=== PATIENT | male | born 1970 | race Caucasian/White ===

== ENCOUNTER 2019-12-31 00:32 | Inpatient (IN) | payer MEDICARE, MEDICAID ==
[2019-12-31] VITALS (74 sets, daily range): BP systolic 103–145; BP diastolic 50–90
[~2019-12-31] VITALS: Ht 167.6 cm; Wt 131.2 kg
--- NOTE | ~2019-12-31 | CON ---
[address] [address] CONSULTATION Name: MOSES HOLLOWAY Room: [address] ADM IN M.R.#: [id number] Admission: 12/31/19 Attend Phys: Sylvia Fisher MD Discharge: Date of : 66 Report #: [id number] THIS REPORT FOR: //name// cc: Masoud Macario MD, Khanh MD ~ THIS REPORT FOR: //name// CC: Masoud Fisher DATE OF SERVICE: 12/31/2019 NEUROLOGY CONSULTATION CONSULTING PHYSICIAN: Dr. Fisher. REASON FOR CONSULTATION: Acute kidney injury. HISTORY OF PRESENT ILLNESS: A 49-year-old gentleman who was brought in with ttk-[id number] cardiac arrest. He is intubated and currently on two vasopressors. He is being followed by Cardiology, Pulmonology in the hospital and hospitalist. I was asked to see him because of an elevated creatinine and some poor urine output. His creatinine on admission was 1.9. Baseline creatinine is unknown. He has had some significant hyperglycemia as well and has been started on antibiotics. His urine drug screen was positive for marijuana. It was thought that he was down for about 20 minutes and there is some concern for polysubstance abuse as well. REVIEW OF SYSTEMS: Constitutional, psych, heme, eyes, ENT, respiratory, cardiac, GI, , endocrine, all negative except as can be documented above and as best as can be ascertained. PAST MEDICAL HISTORY: Diabetes, hypertension, dyslipidemia, history of marijuana use. SOCIAL HISTORY: Positive for marijuana. FAMILY HISTORY: Not pertinent in this 49-year-old gentleman. CURRENT MEDICATIONS: Reviewed. PHYSICAL EXAMINATION: VITAL SIGNS: Blood pressure 124/78, pulse 70, respirations 20, temperature 32.1. He is on hypothermia protocol. GENERAL: On respiratory support. HEAD: Normocephalic[place] [address] CONSULTATION Name: MOSES HOLLOWAY Room: [address] IN [facility]#: [id number] Admission: 12/31/19 Attend Phys: Sylvia Fisher MD Discharge: Date of : 66 Report #: [id number] CARDIOVASCULAR: Regular rate. LUNGS: Diminished. ABDOMEN: Distended. MUSCULOSKELETAL: No significant pitting edema. NEUROLOGIC: Unresponsive and currently sedated. LABORATORY DATA: White cell count 16.8, hemoglobin 16.8, platelets 243. Sodium 135, potassium 4.2, chloride 101, bicarbonate 21, BUN 24, creatinine 2, glucose 541, calcium 7.1, phosphorus 7.1, magnesium 1.8. ASSESSMENT: 1. Acute kidney injury with a creatinine of 1.9. Baseline creatinine is unknown. UA is noted and was abnormal showing some hematuria and proteinuria and this is in the setting of shock and qjb-mr-kpbwukru cardiac arrest. 2. Severe acidosis with a pH of 7.02, pCO2 of 68 and a bicarbonate of 17. This is respiratory acidosis with an elevated anion gap metabolic acidosis and normal anion gap acidosis with an anion gap of 17 and a delta delta of 0.7. This is in the setting of elevated blood sugars and acute kidney injury. His alcohol level was less than 10 and his UA did not show any ketones. 3. Urine drug screen positive for marijuana. 4. Hematuria. 5. Proteinuria. 6. Shock, requiring vasopressor support. 7. Mff-qc-gooaatvt cardiac arrest on code ICE protocol. 8. Diabetes with significant hyperglycemia. 9. Hyperphosphatemia with phosphorus 7.7 on 12/31/2019. 10. Hypocalcemia with a calcium 7.1 on 12/31/2019. PLAN: 1. Creatinine is 2. Urine output diminished. Castillo catheter, which was manipulated by ICU nurse and urine output seems to have improved quite a bit. 2. We will check renal ultrasound. 3. Check urine protein to creatinine ratio. 4. The patient is on bicarbonate drip. I am informed by the ICU nurse that Pulmonology will be managing the bicarbonate drip. We will defer to them and repeat gas has been ordered by Pulmonology. 5. Rewarming is planned for 3:00 a.m. 6. Currently on two vasopressors as well as antibiotics. 7. We will send serologic workup and check for DANTE, ANCA, anti-GBM, hepatitis B, hepatitis C, rheumatoid factor. We will also check a CK. 8. We will give IV calcium. 9. Check CK. 10. [place] [address] CONSULTATION Name: MOSES HOLLOWAY Room: [address] IN ..#: [id number] Admission: 12/31/19 Attend Phys: Sylvia Fisher MD Discharge: Date of : 66 Report #: [id number] Thank you for requesting my opinion in the care and management of this patient. By: 1301 [id number] Michael Martinez MD /sourav
[2019-12-31 01:29] LABS: ABSOLUTE BASOPHILS 0.1 thou/uL (0.0-0.2); ABSOLUTE EOSINOPHILS 0.1 thou/uL (0.0-0.7); ABSOLUTE LYMPHOCYTES 7.1 thou/uL (0.8-5.3); ABSOLUTE MONOCYTES 0.7 thou/uL (0.0-1.2); ABSOLUTE NEUTROPHILS 10.1 thou/uL (1.6-8.1); BASOPHILS 0.3 %; EOSINOPHILS 0.7 %; HEMATOCRIT 47.8 % (42.0-52.0); HEMOGLOBIN 15.5 gm/dL (14.0-18.0); LYMPHOCYTES 39.4 %; MCH 31.5 pg (26.0-34.0); MCHC 32.5 g/dL (28.0-37.0); MCV 96.9 fL (80.0-100.0); MONOCYTES 3.9 %; MPV 8.1 fl. (7.2-11.1); NUCLEATED RBCS 0 /100WBC; PLATELET COUNT* 214 thou/uL (150-400); POLYS 55.7 %; RBC 4.93 mil/uL (4.50-6.00); RDW-CV 14.9 % (10.5-14.5); WBC 18.1 thou/uL (4.0-11.0)
[2019-12-31 01:31] LABS: CALCIUM 9.2 mg/dL (8.5-10.1); CREATININE 1.9 mg/dL (0.6-1.3)
[2019-12-31 01:42] LABS: MAGNESIUM 2.3 mg/dL (1.8-2.4); TOTAL BILIRUBIN 0.3 mg/dL (<0.1-1.0); TOTAL PROTEIN 7.5 g/dL (6.4-8.2)
[2019-12-31] MEDS ORDERED: AMBIEN 10 MG TA10 MG (01:44)
[2019-12-31 01:52] LABS: INR 1.1; PROTIME 11.1 Seconds (9.20-11.50)
[2019-12-31 02:07] LABS: BE -17.3 mmol/L (-2 to +3)
[2019-12-31 02:09] LABS: PCO2 112.6 mmHg (35.0-45.0); PO2 162.4 mmHg (75.0-100.0); pH 6.842 (7.340-7.450)
[2019-12-31 03:12] LABS: BE -15.3 mmol/L (-2 to +3)
[2019-12-31 03:19] LABS: PCO2 92.1 mmHg (35.0-45.0); PO2 152.6 mmHg (75.0-100.0); pH 6.939 (7.340-7.450)
[2019-12-31 04:51] LABS: URINE BILIRUBIN NEGATIVE (Negative); URINE BLOOD 3+ (Negative); URINE CLARITY SL CLOUDY; URINE COLOR YELLOW; URINE GLUCOSE-RANDOM 3+ (Negative); URINE KETONES NEGATIVE (Negative); URINE LEUKOCYTES-REFLEX NEGATIVE (Negative); URINE NITRITE-REFLEX NEGATIVE (Negative); URINE PROTEIN 3+ (Negative); URINE SPECIFIC GRAVITY 1.025 (1.005-1.030); URINE UROBILINOGEN 0.2 E.U./dl (0.2-1.0)
[2019-12-31 04:58] LABS: AMP/METHAMP Negative (Negative); BARBITURATES Negative (Negative); BENZODIAZEPINES POSITIVE (Negative); COCAINE Negative (Negative); METHADONE Negative (Negative); OPIATES POSITIVE (Negative); PCP Negative (Negative); THC POSITIVE (Negative)
[2019-12-31 06:12] LABS: SQUAMOUS 4-10 Moderate /LPF (0-3)
[2019-12-31 06:13] LABS: COARSE GRANULAR CASTS 0-3 Few /LPF (None Seen); URINE RBC >20 Many /HPF (0-2); URINE WBC-REFLEX 6-15 Few /HPF (0-5)
[2019-12-31 06:14] LABS: AMORPHOUS URATES Moderate /LPF (None Seen)
[2019-12-31 06:29] LABS: APTT 36.3 Seconds (25.0-31.3)
[2019-12-31 06:54] LABS: CALCIUM 7.2 mg/dL (8.5-10.1); CK-MB MASS 11.4 ng/mL (<0.5-3.6); PHOSPHORUS* 8.9 mg/dL (2.5-4.9)
[2019-12-31 09:21] LABS: HEMATOCRIT 50.7 % (42.0-52.0); HEMOGLOBIN 16.8 gm/dL (14.0-18.0); MCH 30.9 pg (26.0-34.0); MCHC 33.2 g/dL (28.0-37.0); MCV 93.1 fL (80.0-100.0); MPV 7.2 fl. (7.2-11.1); NUCLEATED RBCS 1 /100WBC; PLATELET COUNT* 243 thou/uL (150-400); RBC 5.45 mil/uL (4.50-6.00); WBC 16.8 thou/uL (4.0-11.0)
[2019-12-31 09:33] LABS: CK-MB MASS 19.1 ng/mL (<0.5-3.6)
[2019-12-31 09:35] LABS: TROPONIN-I LEVEL 0.84 ng/mL (<0.06)
[2019-12-31 09:43] LABS: FIBRINOGEN 149 mg/dL (200-340); INR 1.3; PROTIME 13.5 Seconds (9.20-11.50)
[2019-12-31 09:53] LABS: CALCIUM 7.1 mg/dL (8.5-10.1); MAGNESIUM 1.8 mg/dL (1.8-2.4); PHOSPHORUS* 7.7 mg/dL (2.5-4.9); POTASSIUM 4.2 mmol/L (3.5-5.1)
--- NOTE | 2019-12-31 10:12 | NUR ---
RECEIVED REPORT AND ASSUMED CARE AT 0342. PT TRANSPORTED FROM ED TO ROOM ICU 05. HYPOTHERMIA INITIATED AT 0347. STARTING TEMP AT 0347 WAS 92.5 F PER LOCO TEMP PROBE. GOAL TEMP OF 91.0 F REACHED AT 0630. LAB RESULTS RECEIVED AND COMMUNICATED WITH PHYSICIAN. CT OF HEAD NOT COMPLETED PRIOR TO PT ARRIVING TO ICU, PER PHYSICAN THIS AM, WILL WAIT FOR NEURO CONSULT PRIOR TO COMPLETING R/T CODE ICE STATUS. BED LOCKED IN LOWEST POSITION, BED ALARM ON. PATIENT 1:1 WHILE IN COOLING STATE. REWARMING TO BEGIN AT 0347 ON 01/01/20.
[2019-12-31 10:45] LABS: BE -15.2 mmol/L (-2 to +3); PO2 94.9 mmHg (75.0-100.0)
[2019-12-31 10:47] LABS: pH 7.018 (7.340-7.450)
[2019-12-31 11:04] LABS: ABSOLUTE LYMPHOCYTES 1.3 thou/uL (0.8-5.3); ABSOLUTE MONOCYTES 0.2 thou/uL (0.0-1.2); ABSOLUTE NEUTROPHILS 15.3 thou/uL (1.6-8.1); METAMYELOCYTES 3 %; PLATELET ESTIMATE ADEQUATE
--- NOTE | 2019-12-31 12:55 | EKG ---
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 : 1970 Requested By: Gloria Griffin Order Number: [id number] MD: Domingo Mejia Measurements Intervals [place] Rate: 103 P: 74 LA: 166 QRS: 77 QRSD: 130 T: -55 QT: 368 QTc: 482 Interpretive Statements Sinus tachycardia Nonspecific intraventricular conduction delay Repol abnrm suggests ischemia, inferior leads No previous ECG available for comparison Electronically Signed On 12-31-2019 12:55:05 CDT by Domingo Mejia [email or web address] <ELECTRONICALLY SIGNED> By: Domingo Mejia MD, FACC 12/31/19 1255 0046 0046 Domingo Mejia MD, [facility] /EPI
[2019-12-31 15:09] LABS: BE -17.8 mmol/L (-2 to +3); PO2 103.6 mmHg (75.0-100.0)
[2019-12-31 15:12] LABS: CALCIUM 6.3 mg/dL (8.5-10.1); CREATININE 2.5 mg/dL (0.6-1.3); POTASSIUM 3.1 mmol/L (3.5-5.1)
[2019-12-31 15:12] LABS: PCO2 65.2 mmHg (35.0-45.0); pH 6.978 (7.340-7.450)
--- NOTE | 2019-12-31 17:39 | NUR ---
PT REMAINS INTUBATED PER ORDERED SETTINGS.CODE ICE PROTOCOL FOLLOWED.REWARMING TO BEGIN @ 0347 01/01/20.MTN NOTFIED-PLEASE UPDATE WITH CHANGES.ART LINE PLACED THIS AM IN LEFT RADIAL BY ANESTHESIA.WOUND PICTURE TAKEN OF ABRASION ON RIGHT ABDOMEN.IO REMOVED FROM LEFT KNEE.PT STARTED ON PARALYTIC PER ORDERS-PER NO TRAIN OF FOUR NEEDS TO BE DONE BECAUSE WE ARE NOT TITRATING THE MEDICATION.NEW CONSULTS CALLED-PLAN FOR EEG,ECHO,CT,US RENAL/LOWER EXTREMITIES TOMORROW AFTER REWARMING.COVID TEST COLLECTED-ISOLATION MAINTAINED UNTIL RESULTS.FAMILY UPDATED-SISTER ARRIVED AT ICU DOORS BUT WAS NOT ALLOWED IN DUE TO PENDING COVID RESULTS.PT REMAINS 1:1-WILL CONTINUE TO MONITOR FOR DURATION OF SHIFT.
--- NOTE | 2019-12-31 19:00 | NUR ---
RECEIVED REPORT FROM DAY RN AND ASSUMED CARE. PT INCONINENT OF FOUL LOOSE STOOL. PARTIAL BATH AND LINEN CHANGE DONE
[2019-12-31 19:08] LABS: ABSOLUTE LYMPHOCYTES 0.7 thou/uL (0.8-5.3); ABSOLUTE MONOCYTES 0.3 thou/uL (0.0-1.2); ABSOLUTE NEUTROPHILS 10.5 thou/uL (1.6-8.1); BASOPHILS 0.1 %; EOSINOPHILS 0.1 %; HEMATOCRIT 49.1 % (42.0-52.0); HEMOGLOBIN 16.5 gm/dL (14.0-18.0); LYMPHOCYTES 5.7 %; MCH 30.8 pg (26.0-34.0); MCHC 33.6 g/dL (28.0-37.0); MCV 91.9 fL (80.0-100.0); MONOCYTES 2.6 %; MPV 7.3 fl. (7.2-11.1); NUCLEATED RBCS 1 /100WBC; PLATELET COUNT* 213 thou/uL (150-400); POLYS 91.5 %; RBC 5.35 mil/uL (4.50-6.00); RDW-CV 14.4 % (10.5-14.5); WBC 11.5 thou/uL (4.0-11.0)
[2019-12-31 19:31] LABS: CALCIUM 6.3 mg/dL (8.5-10.1); CK-MB MASS 29.2 ng/mL (<0.5-3.6); CREATININE 2.6 mg/dL (0.6-1.3); MAGNESIUM 1.7 mg/dL (1.8-2.4); PHOSPHORUS* 3.7 mg/dL (2.5-4.9)
[2019-12-31 19:32] LABS: TROPONIN-I LEVEL 1.24 ng/mL (<0.06)
[2019-12-31 19:36] LABS: APTT 26.6 Seconds (25.0-31.3); FIBRINOGEN 210 mg/dL (200-340); INR 1.2; PROTIME 12.5 Seconds (9.20-11.50)
[2019-12-31 20:15] LABS: BE -15.6 mmol/L (-2 to +3); PO2 105.2 mmHg (75.0-100.0)
[2019-12-31 20:22] LABS: PCO2 51.8 mmHg (35.0-45.0); pH 7.073 (7.340-7.450)
--- NOTE | 2019-12-31 22:15 | NUR ---
SPOKE TO DR METZ REGARDING MOST RECENT ABNORMAL LABS. ORDER FOR POTASSIUM ACETATE 50MEQ/250 CC NS TRO 4 HRS. PHARMACY CALCULATED DOSE TO 6HR AND STARTED FOLLOWING 3RD KCL [address] METZ WANTED THE K/ACETE STARTED BEFORE THE ORDERED 80 MEQ PROTOCOL DOSE INFUSED. PT ALSO GIVEN MAGNESIUM 2GM IVPB AT THIS TIME. LEVOPHED CONT'S AT 30 MCG/MIN, BICARB AT 125CC/HR, FENTANYL 50 MCG AND VERSED AT 2 MG/HR, NIMBEX AT 37.5/HR. HIS PRESSURES HAVE BEEN LABILE INTERMITTENTLU WITHOUT OUTSIDE STIMULUS. SBP 70-140/30-60. MAP HAS CONT'D 70'S. HE DOES NOT ERSPOND TO ANY TACTILE STIMULUS OR PROCEDURE. PUPILS REMAIN FULLY DILATED WITH SLOW RESPONSE? I HAVE BEEN MONITORING URINE OUTPUT HOURLY SINCE SHIFT CHANGE AND PT HAS GONE FROM 80 TO CURRENT 20+/HR.WILL WATCH A FEW MORE HOURS AND CONTACT MD IF IT STAYS BELOW 30CC/HR FOR 4 HRS.
[2020-01-01] VITALS (75 sets, daily range): BP systolic 76–140; BP diastolic 39–75
[2020-01-01 03:46] LABS: ABSOLUTE LYMPHOCYTES 0.4 thou/uL (0.8-5.3); ABSOLUTE MONOCYTES 0.3 thou/uL (0.0-1.2); ABSOLUTE NEUTROPHILS 9.3 thou/uL (1.6-8.1); BASOPHILS 0.1 %; HEMATOCRIT 46.9 % (42.0-52.0); HEMOGLOBIN 16.2 gm/dL (14.0-18.0); LYMPHOCYTES 4.5 %; MCH 30.9 pg (26.0-34.0); MCHC 34.4 g/dL (28.0-37.0); MCV 89.9 fL (80.0-100.0); MONOCYTES 3.2 %; MPV 7.5 fl. (7.2-11.1); NUCLEATED RBCS 0 /100WBC; PLATELET COUNT* 167 thou/uL (150-400); POLYS 92.2 %; RBC 5.22 mil/uL (4.50-6.00); RDW-CV 14.6 % (10.5-14.5); WBC 10.1 thou/uL (4.0-11.0)
[2020-01-01 04:04] LABS: ALBUMIN 2.9 g/dL (3.4-5.0); CREATININE 2.9 mg/dL (0.6-1.3); MAGNESIUM 1.7 mg/dL (1.8-2.4); TOTAL BILIRUBIN 0.5 mg/dL (<0.1-1.0); TOTAL PROTEIN 5.5 g/dL (6.4-8.2)
[2020-01-01 04:06] LABS: CALCIUM 5.8 mg/dL (8.5-10.1); POTASSIUM 2.8 mmol/L (3.5-5.1)
[2020-01-01 04:10] LABS: CREATININE 2.9 mg/dL (0.6-1.3); MAGNESIUM 1.6 mg/dL (1.8-2.4)
[2020-01-01 04:24] LABS: POTASSIUM 2.9 mmol/L (3.5-5.1)
[2020-01-01 04:28] LABS: FIBRINOGEN 276 mg/dL (200-340)
[2020-01-01 04:29] LABS: CALCIUM 5.9 mg/dL (8.5-10.1)
--- NOTE | 2020-01-01 04:30 | NUR ---
SPOKE TO DR METZ REGARDING AM LABS, ORDERS RECEIVED TO CON'T K PROTOCOL AND GIVE ADDT'L 2GM MAGNESIUM NOW. INFORMED HIM OF PT INSULIN RESISTENCE AND HIGH DOSING TONIGHT. ORDER TO CALL RENAL FOR ASSISTANCE WITH LABS. CALLED PLACED RIGHT AFTR SPEAKING TO JUICE TO DR NGO OFFICE
[2020-01-01 06:10] LABS: ALBUMIN 2.9 g/dL (3.4-5.0); CREATININE 2.9 mg/dL (0.6-1.3); PHOSPHORUS* 2.8 mg/dL (2.5-4.9)
[2020-01-01 06:11] LABS: POTASSIUM 2.9 mmol/L (3.5-5.1)
--- NOTE | 2020-01-01 07:34 | NUR ---
REPORT GIVEN TO BRAXTON PATTERSON RN. PT CURRENTLY IN CRITICAL, STABLE CONDITION
[2020-01-01 08:18] LABS: BE -8.6 mmol/L (-2 to +3); PCO2 46.1 mmHg (35.0-45.0); PO2 68.1 mmHg (75.0-100.0)
[2020-01-01 10:54] LABS: APTT 25.4 Seconds (25.0-31.3); INR 1.2; PROTIME 12.7 Seconds (9.20-11.50)
[2020-01-01 14:56] LABS: PCO2 46.1 mmHg (35.0-45.0); PO2 70.5 mmHg (75.0-100.0); pH 7.321 (7.340-7.450)
[2020-01-01 15:21] LABS: CREATININE 3.4 mg/dL (0.6-1.3)
[2020-01-01 15:24] LABS: CALCIUM 5.5 mg/dL (8.5-10.1)
--- NOTE | 2020-01-01 16:36 | CON ---
[address] [address] CONSULTATION Name: MOSES HOLLOWAY Room: [address] ADM IN M.R.#: [id number] Admission: 12/31/19 Attend Phys: Sylvia Fisher MD Discharge: Date of : 66 Report #: [id number] THIS REPORT FOR: //name// cc: Masoud Macario MD, Khanh MD ~ THIS REPORT FOR: //name// CC: aMsoud Fisher DATE OF SERVICE: 12/31/2019 CARDIOLOGY CONSULTATION INDICATION: Out of hospital arrest. HISTORY OF PRESENT ILLNESS: The patient is a 49-year-old gentleman who was found down at 2330 yesterday. Upon EMS arrival, he was found to be in some sort of arrhythmia requiring 4 shocks at which time spontaneous rhythm and circulation was restored. There is a history of polysubstance abuse. Etiology of cardiac arrest is unknown. He has been admitted and placed on Code Ice protocol. There was concern of aspiration at the time of intubation. PAST MEDICAL HISTORY: Not available. HOME MEDICATIONS: List not available. SOCIAL HISTORY: Not available. FAMILY HISTORY: Unknown. PHYSICAL EXAMINATION: GENERAL: He is presently hemodynamically stable on a combination of epinephrine and Levophed. He is in sinus rhythm. This is a morbidly obese gentleman who is intubated and unresponsive. HEENT: Head is normocephalic, atraumatic. NECK: Thick without obvious jugular venous distention. CHEST: Has diffuse wheezes throughout breath sounds, otherwise adequate. CARDIOVASCULAR: Reveals a regular rhythm with normal S1 and S2. I do not appreciate gallop or murmur. ABDOMEN: Reveals a protuberant abdomen that appears soft. EXTREMITIES: Shows no edema. SKIN: Dry. LABORATORY DATA: A 12-lead EKG shows sinus rhythm with [place] [address] CONSULTATION Name: MOSES HOLLOWAY Room: [address]#: [id number] Admission: 12/31/19 Attend Phys: Sylvia Fisher MD Discharge: Date of : 66 Report #: [id number] depression. No pathologic Q-waves noted. Chest x-ray shows minimal bilateral opacities. Initial troponin was less than 0.06, followed by 0.55 and now 0.84. NT-proBNP is normal at 53. IMPRESSION AND RECOMMENDATIONS: 1. Out of hospital arrest, status post resuscitation. Continue supportive care at this time. At this time, his blood pressure has improved to the point where vasopressors can be titrated. He is on Code ICE protocol, which will be completed. An echocardiogram has been ordered and is pending. Etiology of his arrest is not well known. Certainly, polysubstance use could be contributing. 2. Respiratory arrest. Presently intubated. Pulmonology following. The patient's respiratory status appears stable at this time. 3. Elevated troponin, likely due to strain from cardiac arrest. The numbers are still very small. I would recommend an echocardiogram to evaluate underlying cardiac structure and function. Could consider outpatient stress testing in the event of recovery. <ELECTRONICALLY SIGNED> By: Domingo Mejia MD, FACC 01/01/20 1636 1116 1130Micpeter Mejia MD, FACC /nt
--- NOTE | 2020-01-01 17:08 | NUR ---
ICU rounds: Pt was a code ice yesterday, rewarming now, up to 97 degrees. Pt is intubated and sedated. On pressors. Levo at 25. On insulin gtt. No weaning trials planned as of yet. Per nurse, Pt was having dinner with his 11 year old son, passed out, son called his mom (Pt's ex ) and she called 911. Per nurse, sister informed that Pt has a hx of opiate abuse. CM left message for Pt's sister, awaiting call back. Following.
--- NOTE | 2020-01-01 19:36 | NUR ---
TARGET TEMP 98.6 REACHED AT 1630, MAINTAINING TEMP FROM 98.1 TO 98.4. GCS 3. MTN AND FAMILY UPDATED. LEVOPHED TITRATED PER PROTOCOL, CURRENTLY AT 25 MCG/MIN. NIMBEX AND VERSED TO BE CONTD OVERNIGHT PER DR METZ. IV DRIP CHANGED TO NS AT 100 MLS/HR. ELECTROLYTES REPLACED PER ORDERS. OG AT LIS. UOP 130 MLS. SMALL SMEAR OF BM THIS SHIFT. Q2 TURNS AND ORAL CARE GIVEN.
[2020-01-01 20:06] LABS: MAGNESIUM 2.1 mg/dL (1.8-2.4)
[2020-01-01 20:07] LABS: CALCIUM 5.9 mg/dL (8.5-10.1)
[2020-01-01 20:28] LABS: BE -4.4 mmol/L (-2 to +3); PCO2 39.9 mmHg (35.0-45.0); PO2 70.7 mmHg (75.0-100.0); pH 7.339 (7.340-7.450)
[2020-01-02] VITALS (68 sets, daily range): BP systolic 92–123; BP diastolic 41–65
--- NOTE | 2020-01-02 04:05 | NUR ---
ASSUMED CARE AT 1900H, ON VENT PRESSURE SUPPORT OF 35, FREQUENCY 26 AND FIO2 70% AND TOLERATED. PT WAS UNRESPONSIVE AND PUPILS AT 5MM FIXED. ON GOING NIMBEX, VERSED, AND LEVO DRIP. INFORM NEPRO REGARDING CRITICAL RESULT WITH ORDER MADE AND CARRIED OUT. PULMONULOGIST ORDERED NEW VENT SEETING. AC MODE, TV 580, FREQUENCY 22, PEEP 5 AND FIO2 70%. NO DISTRESS NOTED. MAINTAINING DESIRED TEMP, ARTICSUN STOP AND NO REWARMING OR RECOOLING DONE. UPDATE GIVEN TO SISTER AND MTN. LEVO NOW AT 20MICS/MIN. CONTINUE MONITORING ANG TOWARD GOALS.
[2020-01-02 05:20] LABS: ABSOLUTE LYMPHOCYTES 0.6 thou/uL (0.8-5.3); ABSOLUTE MONOCYTES 0.6 thou/uL (0.0-1.2); ABSOLUTE NEUTROPHILS 15.7 thou/uL (1.6-8.1); BASOPHILS 0.1 %; HEMATOCRIT 35.5 % (42.0-52.0); LYMPHOCYTES 3.6 %; MCHC 34.8 g/dL (28.0-37.0); MCV 88.9 fL (80.0-100.0); MONOCYTES 3.4 %; MPV 9.2 fl. (7.2-11.1); NUCLEATED RBCS 0 /100WBC; POLYS 92.9 %; RBC 3.99 mil/uL (4.50-6.00); RDW-CV 14.7 % (10.5-14.5); WBC 16.9 thou/uL (4.0-11.0)
[2020-01-02 05:25] LABS: HEMOGLOBIN 12.3 gm/dL (14.0-18.0); PLATELET COUNT* 75 thou/uL (150-400)
[2020-01-02 05:40] LABS: ALBUMIN 2.6 g/dL (3.4-5.0); CREATININE 4.7 mg/dL (0.6-1.3); MAGNESIUM 1.9 mg/dL (1.8-2.4); TOTAL BILIRUBIN 0.4 mg/dL (<0.1-1.0); TOTAL PROTEIN 5.1 g/dL (6.4-8.2)
[2020-01-02 05:44] LABS: POTASSIUM 5.2 mmol/L (3.5-5.1)
[2020-01-02 05:46] LABS: CALCIUM 5.9 mg/dL (8.5-10.1)
[2020-01-02 06:27] LABS: HEMATOCRIT 35.1 % (42.0-52.0); HEMOGLOBIN 12.1 gm/dL (14.0-18.0); MCH 30.6 pg (26.0-34.0); MCHC 34.4 g/dL (28.0-37.0); MCV 89.1 fL (80.0-100.0); RBC 3.94 mil/uL (4.50-6.00); RDW-CV 14.6 % (10.5-14.5); WBC 16.5 thou/uL (4.0-11.0)
--- NOTE | 2020-01-02 07:43 | NUR ---
0730 ASSUMED CARE OF PATIENT. PLEASE SEE DOCUMENTED ASSESSMENT. WARMING PADS REMOVED. PT REMAINS ON PARALYTIC
[2020-01-02 08:17] LABS: BE -8.6 mmol/L (-2 to +3); PCO2 49.6 mmHg (35.0-45.0); PO2 80.4 mmHg (75.0-100.0)
[2020-01-02 08:20] LABS: pH 7.208 (7.340-7.450)
--- NOTE | 2020-01-02 09:00 | NUR ---
FLUID BOLUS INITIATED ORDERED BY DR ARAUJO. ATTEMPTING TO COORDINATE CT SCHEDULE WITH RT/CT/COMMITTEE MEMBER
--- NOTE | 2020-01-02 10:12 | NUR ---
EEG IN PROGRESS. SECOND FLUID BOLUS UP. =WILL RESTAART FENTANYL DRIP
--- NOTE | 2020-01-02 11:06 | NUR ---
DR ROUSSEAU HERE AND ORDERS NOTED. AWARE OF LABS AND OUTPUT
[2020-01-02 11:07] LABS: ANA INTERPRETATION Negative (Negative)
[2020-01-02 12:09] LABS: CALCIUM 6.1 mg/dL (8.5-10.1); CREATININE 5.2 mg/dL (0.6-1.3); POTASSIUM 4.9 mmol/L (3.5-5.1)
[2020-01-02 12:14] LABS: PCO2 40.8 mmHg (35.0-45.0)
[2020-01-02 12:18] LABS: pH 7.253 (7.340-7.450)
--- NOTE | 2020-01-02 12:35 | CON ---
[address] [address] CONSULTATION Name: MOSES HOLLOWAY Room: [address] IN M.R.#: [id number] Admission: 12/31/19 Attend Phys: Sylvia Fisher MD Discharge: Date of : 66 Report #: [id number] THIS REPORT FOR: //name// cc: Masoud Macario MD, Khanh MD ~ THIS REPORT FOR: //name// CC: Masoud Fisher DATE OF SERVICE: 12/31/2019 CONSULT REQUESTED BY: Wilian Dobbins MD INDICATION FOR CONSULTATION: Acute hypoxemic and hypercarbic respiratory failure post-cardiac arrest. HISTORY OF PRESENT ILLNESS: A 49-year-old gentleman. He is post-cardiac arrest and at this time is not responsive and therefore detailed information is not available. The patient is reported to have an outside cardiac arrest and had been shocked 4 times in field. The exact duration of time the patient was unresponsive is not known. The patient is reported to have been found unresponsive at home at 2330 hours yesterday. The patient had been vomiting. He is reported to have had a history of illegal drug use. I do not have details available. He had a bottle of pills with him. He, after being shocked 4 times in the field, did have return of spontaneous circulation. The patient is reported to have had used an arthritis cream recently, which contains ketamine. Upon arrival to the ER, the patient had a Carlos Enrique's tube. He had been vomiting and it was obvious that the patient has aspirated vomitus. He was switched over to an endotracheal tube and had a central line placed in the Emergency Room. The patient has been significantly hypotensive, although he has been bolused with 4 liters of fluid and has IV fluids running at 150 an hour. The patient in addition to being on maximal doses of norepinephrine also is on low dose epinephrine to maintain blood pressure. The patient has been on assist control mode of ventilation with a rate of 28 and a tidal volume of 450 overnight. The patient is unable to provide a further history or review of systems. PAST MEDICAL HISTORY: Morbid obesity. Further details not available. HOME MEDICATIONS: He is reported to have used Ambien at home. Further details not available. SOCIAL HISTORY: He has a history of illegal drug use. Further [place] [address] CONSULTATION Name: MOSES HOLLOWAY Room: [address] IN [facility]#: [id number] Admission: 12/31/19 Attend Phys: Sylvia Fisher MD Discharge: Date of : 66 Report #: [id number] FAMILY HISTORY: Unknown. ALLERGIES: Unknown. PHYSICAL EXAMINATION: GENERAL: The patient was overbreathing the ventilator at times, other than this, I did not see any response prior to giving paralytic as below. He is on high doses of pressors as above. VITAL SIGNS: Has a pulse of 80 and a blood pressure of 124/50. He is oxygenating well at 98%. He is on 90% FiO2, tidal volume 450, AC rate 28, FiO2 is 90%. He is afebrile. HEENT: Head is normocephalic and atraumatic. Endotracheal tube is in good position. NECK: Does not show raised JVP, asymmetry, mass or lymph nodes. CHEST: Symmetrical expansion on inspection and palpation. On auscultation, there are loud inspiratory as well as expiratory wheezes heard. The patient is severely bronchospastic. HEART: Regular. There is no murmur. ABDOMEN: Significantly distended. There is no tenderness. There is a small amount of blood present in the OG. There has been high OG output. There is no obvious tenderness of the abdomen. EXTREMITIES: Lower extremities show no edema, no calf tenderness. SKIN: Dry and intact. NEUROLOGICAL: He is completely unresponsive. LABORATORY DATA: The patient's chest x-ray is reviewed. I repeated a stat chest x-ray now as well. I do not see any large infiltrates. There are small opacities bilaterally, which are consistent with some aspiration. There is no increase in pulmonary vascular congestion. Endotracheal tube is in good position. The patient's arterial blood gases showing a significant respiratory as well as metabolic acidosis in [facility] reviewed. The patient's lab work, which shows a creatinine elevated to 1.9 consistent with acute renal failure, reviewed. The patient's blood glucose was 406 this morning. The patient's CBC is in [facility] reviewed. The patient's COVID-19 antigen is negative, but PCR is pending. ASSESSMENT AND PLAN: 1. Cardiac arrest, etiology of the patient's cardiac arrest remains to be fully defined at this time. He is, however, positive on benzodiazepines, marijuana as well as opiates on admission. It is, however, possible that the patient was administered some benzodiazepine and opiates prior to this being drawn, unknown to me as to whether the use of ketamine containing cream may have played a role. 2. Acute hypoxemic and hypercarbic respiratory failure. I switched him over to pressure control with this, he has a higher tidal volume. We will see if this leads to a favorable response. We will start him on some sedation to be able to ventilate him better. Obviously he is otherwise unresponsive, but this is to [address] [address] CONSULTATION Name: MOSES HOLLOWAY Room: [address] IN M.R.#: [id number] Admission: 12/31/19 Attend Phys: Sylvia Fisher MD Discharge: Date of : 66 Report #: [id number] be able to ventilate him. I gave him 2 doses of vecuronium as well. I did not give him sedation before giving him vecuronium as he is unresponsive. It is possible that he needs to be started on a paralytic infusion. We will follow and advise. 3. Severe acute bronchospasm. High dose Solu-Medrol as well as bronchodilators are ordered via nebulizer. 4. Aspiration pneumonitis. I do not see any large infiltrates in the patient's chest x-ray, but he is obviously aspirated. We will go ahead and start him on Zosyn. We will also do more cultures and serologies. 5. Acute renal failure with metabolic as well as respiratory acidosis. I intend to start him on a bicarbonate infusion. I did order an amp of bicarbonate to be pushed and the patient has had only minimal urine output. I intend to continue with fluids. If he remains hard to ventilate, then I will paralyze him as above. Nephrology service has also been consulted. We will bolus him with albumin. 6. Upper gastrointestinal bleed. He does have a small amount of blood in his OG. I would start him on Protonix for now, I discontinued his subcutaneous heparin, but will reassess and perhaps be start subcutaneous heparin if he remains stable tomorrow. 7. Anoxic brain injury. This will need to be evaluated further later. 8. Abdominal distention. His abdomen is significantly distended. I am giving him fentanyl in order to avoid further distention of the abdomen with fentanyl. I will go ahead and give him one dose of Relistor as well. 9. COVID-19 screening. This is in progress. The antigen is negative. PCR is pending. 10. Evaluation for thromboembolic phenomena. We will also do venous Dopplers. We will plan on an echo later as well. Obviously cannot do a CT chest as his creatinine is elevated. 11. Severe hyperglycemia. Insulin drip. The patient is critically ill at this time. Total time spent providing critical care to this patient exceeds 1 hour. <ELECTRONICALLY SIGNED> By: Sharan Caban MD 01/02/20 1235 0846 [id number] Caban MD /nt
--- NOTE | 2020-01-02 12:50 | NUR ---
DR BARRAGAN TO SEE PATIENT. TO REPEAT EEG TOMORROW.
--- NOTE | 2020-01-02 14:14 | NUR ---
[address] PER BED WITH RT AND TRANSPORTER.
--- NOTE | 2020-01-02 14:23 | NUR ---
[address] PER BED.
--- NOTE | 2020-01-02 14:38 | NUR ---
HEAD CT RESULTS CALLED TO DR BARRAGAN
--- NOTE | 2020-01-02 15:10 | NUR ---
CT RESULTS TO DR METZ. PARALYTIC OFF BUT HE WANTS TO CONTINUE FENTANYL AND VERSED DRIPS.
--- NOTE | 2020-01-02 15:29 | NUR ---
ICU rounds: ?brain protocol. MTN following. Neuro following.
[2020-01-02 18:06] LABS: HEPATITIS B SURFACE AG Negative (Negative)
--- NOTE | 2020-01-02 18:43 | NUR ---
PATIENT IS NEEDING LESS SUPPORT OF BLOOD PRESSURE. HE IS ON PRESSURE CONTROL VENTILATOR MODE. OLIGURIC. CT'S OF HEAD,CHEST, AND ABDOMEN COMPLETED. OFF ALL SEDATION. SISTER HAS CALLED WANTING THOSE RESULTS. DIRECTED TO SPEAK WITH PHYSICIANS TOMORROW. SHE IS AWARE THAT THE HEAD CT SHOWED EDEMA. EEG DONE AND WILL BE REPEATED TOMORROW. MTN HERE THIS MORNING
[2020-01-03] VITALS (55 sets, daily range): BP systolic 86–155; BP diastolic 42–75
--- NOTE | 2020-01-03 04:32 | NUR ---
ASSUMED CARE AT 1900H, ON VENT PRESSURE SUPPORT OF 35 AND FIO2 0F 70%. SEEN ON BED UNRESPONSSIVE AND FIXED PUPILS. NO SEDATION AND ON LEVO DRIP, TITRATED. PLAN FOR BRAIN TESTING TODAY. SISTER TIM WILL VISIT PT TODAY. PT STILL UNRESPONSSIVE AND VENT TOLERATED. NO BLEEDING AND NO FEVER NOTED. CONTINUE MONITORING AND TOWARD GOALS.
[2020-01-03 05:13] LABS: HEMATOCRIT 29.6 % (42.0-52.0); HEMOGLOBIN 10.2 gm/dL (14.0-18.0); MCH 30.7 pg (26.0-34.0); MCHC 34.6 g/dL (28.0-37.0); MCV 88.8 fL (80.0-100.0); MPV 9.1 fl. (7.2-11.1); NUCLEATED RBCS 0 /100WBC; PLATELET COUNT* 57 thou/uL (150-400); RBC 3.33 mil/uL (4.50-6.00); RDW-CV 14.9 % (10.5-14.5); WBC 13.2 thou/uL (4.0-11.0)
[2020-01-03 05:38] LABS: ALBUMIN 2.3 g/dL (3.4-5.0); CALCIUM 6.8 mg/dL (8.5-10.1); MAGNESIUM 2.1 mg/dL (1.8-2.4); POTASSIUM 4.8 mmol/L (3.5-5.1); TOTAL BILIRUBIN 0.3 mg/dL (<0.1-1.0); TOTAL PROTEIN 5.1 g/dL (6.4-8.2)
[2020-01-03 05:46] LABS: ABSOLUTE LYMPHOCYTES 0.4 thou/uL (0.8-5.3); ABSOLUTE MONOCYTES 0.1 thou/uL (0.0-1.2); ABSOLUTE NEUTROPHILS 12.7 thou/uL (1.6-8.1); PLATELET ESTIMATE DECREASED
[2020-01-03 05:48] LABS: ANISOCYTOSIS 1+; CREATININE 6.7 mg/dL (0.6-1.3); POIKILOCYTOSIS 1+; TOXIC GRANULATION Occasional
[2020-01-03 06:44] LABS: PREALBUMIN 14.1 mg/dL (18.0-35.7)
[2020-01-03 08:12] LABS: BE -5.7 mmol/L (-2 to +3); PCO2 31.6 mmHg (35.0-45.0); pH 7.385 (7.340-7.450)
--- NOTE | 2020-01-03 11:11 | NUR ---
NEUROLOGIC TESTS FOR BRAIN DONE BY DR BARRAGAN AT THE BEDSIDE, CALORIC REFLEX AND CORNEAL REFLEX ABSENT. APNEA TEST PENDING, DR METZ TO DECIDE ON THE TIME FOR APNEA TEST.
[2020-01-03 12:53] LABS: BE -7.3 mmol/L (-2 to +3); PCO2 37.7 mmHg (35.0-45.0); PO2 88.9 mmHg (75.0-100.0); pH 7.305 (7.340-7.450)
--- NOTE | 2020-01-03 16:00 | NUR ---
PT DECLARED BRAIN BY DR GALAN AT 1402. SISTER NOTIFIED. MTN NOTIFIED AND IN THE UNIT CO-ORDINATING THE CARE. DISCHARGED FROM HOSPITALIST AND PLAN TO ADMIT UNDER MTN. ALL CONSULTS NOTIFIED.
--- NOTE | 2020-01-03 17:06 | NUR ---
ICU ROUNDS: CM SPOKE TO THE RN IN-CHARGE OF THE PT AND SHE INFORMS THAT PER DR RAMACHANDRAN PT IS 'BRAIN '. PT TO HAVE NUC MED SCAN OF THE BRAIN TODAY. DR EMTZ TO COMPLETE THE APNEA TEST WITH THE PT POSSIBLY TOMORROW. PT'S FAMILY IS INVOLVED. CM WILL REMAIN AVAILABLE TO ASSIST AND FOLLOW NEEDED.
--- NOTE | 2020-01-03 20:00 | EEG ---
[address] [address] EEG STUDY REPORT Name: MOSES HOLLOWAY Room: [address] IN M.R.#: [id number] Admission: 12/31/19 Attend Phys: Sylvia Fisher MD Discharge: 01/03/20 Date of : 66 Report #: [id number] THIS REPORT FOR: //name// CC: Masoud Fisher DATE OF SERVICE: 01/02/2020 This patient is being evaluated for hypoxic encephalopathy. The patient's EEG was done by placing the electrode by standard 10-20 system of electrode placement. Both referential and sequential montages were used for recording. At 7 microvolt, this patient shows no cortical activity. At 2 microvolt it is intermixed with a lot of artifact and is difficult to tell. Photic stimulation is unremarkable. IMPRESSION: At the usual sensitivity of 7 microvolts the patient's EEG shows no cortical activity. At sensitivity of 2, lot of artifact is present either the patient does not have any activity or has very low voltage activity. This EEG needs to be repeated after taking him off the sedation to determine the significance of this finding. <ELECTRONICALLY SIGNED> By: Rusty Loza MD 01/03/201999 1239 [id number] Loza MD /nt
--- NOTE | 2020-01-03 20:00 | CON ---
[address] [address] CONSULTATION Name: MOSES HOLLOWAY Room: [address] IN M.R.#: [id number] Admission: 12/31/19 Attend Phys: Sylvia Fisher MD Discharge: 01/03/20 Date of : 66 Report #: [id number] THIS REPORT FOR: //name// cc: Masoud Macario MD, Khanh MD ~ THIS REPORT FOR: //name// CC: Masoud Fisher DATE OF SERVICE: 12/31/2019 HISTORY OF PRESENT ILLNESS: This is a 49-year-old male patient who was evaluated by me for hypoxic encephalopathy. The patient is unable to provide any history. No family member is here and all of it is from the record. It looks like the patient was admitted with cardiac arrest which may have been secondary to any process. It looks like he aspirated. He was vomiting. There is a question of illegal drug use. He was shocked multiple times. There was some question of foreign body in the lung. REVIEW OF SYSTEMS: Only thing I can get is that this patient had a cardiac arrest and he is on hypothermia protocol at the moment. I do not have any 14-point review of system, which I attempted from. It looks like the patient's blood sugar was very high and is still is and I do not know what his diabetic status is. That is all the 14-point review of system is available. PAST MEDICAL HISTORY: Difficult to tell, but looks like he has diabetes. FAMILY HISTORY: Unavailable. SOCIAL HISTORY: Unavailable. PHYSICAL EXAMINATION: His examination is limited. He is on sedation. He is on pressors. He has no response including Babinski. He did not move anything. His pupils were fixed and dilated, but that need to be considered in the light of the fact that he is on pressor and they can dilate the pupil. Respiratory and cardiac examination is as per Cardiology and Pulmonary. Temperature is 91.5, pulse is 70, blood pressure is 124/78. He did not have a CT scan of the head in the Emergency Room. IMPRESSION: The patient presents with encephalopathy. He needs further workup. His CT was not done in the Emergency Room and need to get it done. Presently, he is on hypothermia protocol and is on pressors. Whenever he comes off hypothermia protocol, we will try to get it done [place] [address] CONSULTATION Name: MOSES HOLLOWAY Room: [address] IN [facility].#: [id number] Admission: 12/31/19 Attend Phys: Sylvia Fisher MD Discharge: 01/03/20 Date of : 66 Report #: [id number] with that. I will also get an EEG done. Hopefully, we can reach the family in the meantime. Thank you very much for this referral. We will follow this patient tomorrow and try to arrange the workup. <ELECTRONICALLY SIGNED> By: Rusty Loza MD 01/03/201999 1531 26Rusty Loza MD /nt
--- NOTE | 2020-01-03 20:00 | EEG ---
[address] [address] EEG STUDY REPORT Name: MOSES HOLLOWAY Room: [address] IN M.R.#: [id number] Admission: 12/31/19 Attend Phys: Sylvia Fisher MD Discharge: 01/03/20 Date of : 66 Report #: [id number] THIS REPORT FOR: //name// CC: Masoud Fisher DATE OF SERVICE: 01/03/2020 This patient has hypoxic encephalopathy. This patient's EEG was started at 7 microvolts and then the sensitivity was changed to 2 microvolt, no cortical activity is present at 7 microvolts. At 2 microvolt, lot of artifact is present, but no cortical activity appeared to be present. Photic stimulation is unremarkable. IMPRESSION: This patient's EEG does not appear to be showing any cortical activity. No electrical activity was noticed during this record consistent with a brain . Clinical correlation is recommended. <ELECTRONICALLY SIGNED> By: Rusty Loza MD 01/03/201999 1637 [id number] Loza MD /nt
--- NOTE | 2020-01-04 14:24 | 2DMMODE ---
[place] [address] 2 D/M-MODE ECHOCARDIOGRAM Name: MOSES HOLLOWAY Room: [facility] IN .R.#: [id number] Admission: 12/31/19 Attend Phys: Sylvia Fisher, Discharge: 01/03/20 Date of : 66 Date of Service: 01/04/20 1424 Report #: [id number] THIS REPORT FOR: cc: Masoud Macario MD, Khanh MD Liston, Michael J. MD [facility] ~ ADDENDUM APPROVED REPORT Study performed: 01/01/2020 09:58:54 EXAM: limited 2D, and color-flow Echocardiogram Patient Location: In-Patient Room #: 005 Status: routine BSA: 2.19 HR: 96 bpm BP: 122/58 mmHg Rhythm: NSR Other Information Technically limited study due to body habitus, inability to position patient, patient on ventilator. Indications Arrhythmia 2D Dimensions LVDd: 36.70 mm LVPWs: 10.00 mm PWd: 9.00 (7-11mm) LVDs: 21.80 (25-40mm) Left Ventricle The left ventricle is normal size. There is normal left ventricular wall thickness. The left ventricular systolic function is normal. The left ventricular ejection fraction is within the normal range. This study is not technically sufficient to allow evaluation of the LV diastolic function. Right Ventricle The right ventricle is normal size. The right ventricular systolic function is normal. Atria The left atrium size is normal. The right atrium size is [facility] [address] [place] [address] 2 D/M-MODE ECHOCARDIOGRAM Name: MOSES HOLLOWAY Room: [address] IN ..#: [id number] Admission: 12/31/19 Attend Phys: Sylvia Fisher, Discharge: 01/03/20 Date of : 66 Date of Service: 01/04/20 1424 Report #: [id number] normal. Aortic Valve The aortic valve is not well visualized. Mitral Valve The mitral valve is normal in structure. There is trace mitral valve regurgitation noted. Tricuspid Valve Tricuspid valve is not well visualized. There is no tricuspid valve regurgitation noted. Pulmonic Valve Pulmonic valve is not well visualized. Great Vessels The aortic root is normal in size. IVC is not well visualized. Pericardium There is no pericardial effusion. <Conclusion> The left ventricular systolic function is normal. The left ventricular ejection fraction is within the normal range. <ELECTRONICALLY SIGNED> By: Domingo Mejia MD, [facility] 01/04/20 1424 1424 1424 Domingo Mejia MD, FACC /INF
== END 2020-01-03 14:02 | DRG 871 ==
LOC: M.ERS 00:32 → EDBD 00:32 → M.ICU 03:35 → M.TBA-ER 03:35 → M.ICU 04:24
PROVIDERS: Emergency Medicine; Internal Medicine; Internal Medicine Critical Care Medicine; Internal Medicine Nephrology; ADMIT Internal Medicine; ATTEND Internal Medicine
PROC: 02HV33Z Insertion of Infusion Device into Superior Vena Cava, Percutaneous Approach (ICD-10-PCS; principal; 2019-12-31)
PROC: B548ZZA Ultrasonography of Superior Vena Cava, Guidance (ICD-10-PCS; principal; 2019-12-31)
PROC: 0BH17EZ Insertion of Endotracheal Airway into Trachea, Via Natural or Artificial Opening (ICD-10-PCS; principal; 2019-12-31)
PROC: 5A1945Z Respiratory Ventilation, 24-96 Consecutive Hours (ICD-10-PCS; principal; 2019-12-31)
DX: A41.9 Sepsis, unspecified organism (principal); J69.0 Pneumonitis due to inhalation of food and vomit; N17.0 Acute kidney failure with tubular necrosis; J96.01 Acute respiratory failure with hypoxia; J96.02 Acute respiratory failure with hypercapnia; G93.1 Anoxic brain damage, not elsewhere classified; K92.2 Gastrointestinal hemorrhage, unspecified; T17.898A Other foreign object in other parts of respiratory tract causing other injury, initial encounter; Z68.42 Body mass index [BMI] 45.0-49.9, adult; E11.65 Type 2 diabetes mellitus with hyperglycemia; I46.9 Cardiac arrest, cause unspecified; I95.9 Hypotension, unspecified; E66.01 Morbid (severe) obesity due to excess calories; T68.XXXA Hypothermia, initial encounter; X58.XXXA Exposure to other specified factors, initial encounter; F19.10 Other psychoactive substance abuse, uncomplicated; I10 Essential (primary) hypertension; E78.5 Hyperlipidemia, unspecified; E83.51 Hypocalcemia; E83.39 Other disorders of phosphorus metabolism; R31.9 Hematuria, unspecified; E78.00 Pure hypercholesterolemia, unspecified; E87.6 Hypokalemia; J98.01 Acute bronchospasm; Z79.899 Other long term (current) drug therapy; Y93.89 Activity, other specified; Y92.89 Other specified places as the place of occurrence of the external cause; Y99.8 Other external cause status; Z03.818 Encounter for observation for suspected exposure to other biological agents ruled out